=== PATIENT | female | born 1980 | race Caucasian/White ===

== ENCOUNTER 2021-08-29 04:16 | Inpatient (IN) | payer OTHER ==
[~2021-08-29] VITALS: Ht 167.6 cm; Wt 67.6 kg
[2021-08-29 04:57] LABS: BASOPHILS # (AUTO) 0.1 K/uL (0.0-0.2); BASOPHILS % (AUTO) 0.8 % (0.0-2.0); HEMATOCRIT 34 % (33-45); HEMOGLOBIN 11.3 g/dL (11.5-14.8); LYMPHOCYTES % (AUTO) 13.5 % (20.0-44.0); MEAN CORPUSCULAR HGB CONC 34 g/dl (31.0-36.0); MEAN CORPUSCULAR VOLUME 100 fL (82-100); MONOCYTES # (AUTO) 0.4 K/uL (0.1-1.30); MONOCYTES % (AUTO) 4.8 % (2.0-12.0); NEUTROPHILS # (AUTO) 6.1 K/uL (1.8-8.9); NEUTROPHILS % (AUTO) 80.9 % (43.0-81.0); PLATELET COUNT (AUTO) 265 K/uL (150-450); RED BLOOD CELL COUNT(AUTO) 3.35 MIL/uL (4.0-5.2); WHITE BLOOD COUNT (AUTO) 7.6 K/uL (4.3-11.0)
[2021-08-29 05:00] LABS: CREATININE 1.3 mg/dL (0.6-1.3); POTASSIUM 3.6 mmol/L (3.5-5.1)
[2021-08-29 05:05] LABS: ALBUMIN 4.8 g/dL (3.4-5.0); BILIRUBIN,DIRECT 0.3 mg/dL (0.0-0.2); TOTAL PROTEIN, SERUM 10.4 g/dL (6.4-8.2)
[2021-08-29 05:40] LABS: BILIRUBIN,URINE SMALL (NEGATIVE); COLOR,URINE DARK YELLOW (YELLOW); LEUKOCYTE ESTERASE ,URINE Negative (NEGATIVE); NITRITE, URINE Negative (NEGATIVE); PH,URINE 6.5 (5.0-8.0); PROTEIN,URINE >=300 mg/dl (NEGATIVE); UGLUCOSE Negative (NEGATIVE)
[2021-08-29 05:58] LABS: RBC,URINE 0-2 /HPF (0-2); WBC,URINE 0-2 /HPF (0-3)
[2021-08-29 05:59] LABS: BACTERIA,URINE Few /HPF (None Seen); HYALINE CASTS, URINE Few /LPF (None Seen); MUCUS,URINE Few /LPF (None Seen); SQUAMOUS EPITHELIAL CELL,UR Many /HPF (None Seen)
[2021-08-29] MEDS ORDERED: ONDANSETRON HCL/PF 4 MG/2 ML VIAL ONE ×2 (06:17→10:25)
[2021-08-29] MEDS ORDERED: LORAZEPAM INJ 2 MG/ML VIAL ONE ×2 (06:17→10:12)
[2021-08-29] MEDS ORDERED: IV D5/ 0.9% NACL 1,000 ML IV ONE ×2 (06:30→10:30)
[2021-08-29] MEDS ORDERED: LORAZEPAM INJ 2 MG/ML VIAL IV ONE ×2 (06:30→10:30)
[2021-08-29] MEDS ORDERED: ONDANSETRON HCL/PF - ER 4 MG/2 ML VIAL IV ONE (06:30)
--- NOTE | 2021-08-29 07:30 | NUR ---
Received patient in bed asleep, in no distress. connected to the monitor and pulse ox. Kept comfortable, will continue to monitor accordingly.
[2021-08-29] MEDS ORDERED: Thiamine 100 MG in IV D5W 50 ML IV SCH (08:00)
[2021-08-29] MEDS ORDERED: THIA100T70 PO (08:04)
[2021-08-29] MEDS ORDERED: LITH150C PO (08:04)
[2021-08-29] MEDS ORDERED: LEVE500T20 PO (08:04)
[2021-08-29] MEDS ORDERED: PANT40TA49 PO (08:04)
[2021-08-29] MEDS ORDERED: FOLI0.4T6 PO (08:05)
[2021-08-29] MEDS ORDERED: ENOXAPARIN SODIUM 60 MG/0.6 ML DISP.SYRIN SQ ONE (10:00)
--- NOTE | 2021-08-29 10:53 | NUR ---
GOT BED 104
[2021-08-29] MEDS ORDERED: ONDANSETRON HCL/PF 4 MG/2 ML VIAL IV ONE (11:00)
--- NOTE | 2021-08-29 11:25 | NUR ---
report given to Dima RANDOLPH for mita.
--- NOTE | 2021-08-29 11:41 | NUR ---
MARIOA CALLED LUMBER HACKER PAGED.
--- NOTE | 2021-08-29 12:44 | NUR ---
RN NOTE Pt received from ER via kailyn, Alert and oriented x 4, complains of pain on back 8/10. With nausea and emesis present, emesis moderate amount x 1 episode. She is ambulatory. RAC IV 20G with no s/sx of infiltration. Safety precautions implemented, bed locked in lowest position, call light within reach.
--- NOTE | 2021-08-29 13:05 | NUR ---
wheeled patient via gurney accompanied by RN and emt in no distress. RN assigned to patient at bedside to assume care.
[2021-08-29 14:00] VITALS: BP 151/98
[2021-08-29] MEDS ORDERED: ONDANSETRON HCL/PF 4 MG/2 ML VIAL IV PRN (14:00)
[2021-08-29] MEDS ORDERED: Z GUARD REMEDY 2 OZ OINT TP PRN (14:30)
[2021-08-29] MEDS ORDERED: MAG HYDROX/AL HYDROX/SIMETH 30 ML UDC PO PRN (14:30)
[2021-08-29] MEDS ORDERED: ZOLPIDEM TARTRATE 5 MG TABLET PO PRN (14:30)
[2021-08-29] MEDS ORDERED: ACETAMINOPHEN 325 MG TABLET PO PRN (14:30)
[2021-08-29] MEDS ORDERED: MAGNESIUM HYDROXIDE 30 ML UDC PO PRN (14:30)
--- NOTE | 2021-08-29 15:14 | NUR ---
RN NOTE Patient denies taking lithium, states she used to take librium 25mg QD but only for a few days but stopped since she started drinking again. notified.
[2021-08-29] MEDS: IV D5/0.45 NACL 1,000 ML IV PRN (16:12)
[2021-08-29] MEDS: HYDROCODONE/APAP 5/325MG TABLET PO PRN (16:24)
[2021-08-29] MEDS: LORAZEPAM INJ 2 MG/ML VIAL IV PRN ×2 (16:25→21:17)
[2021-08-29 18:00] VITALS: BP 125/87
--- NOTE | 2021-08-29 18:35 | NUR ---
CUT ROLL MACHINE OPERATOR CLOSING NOTES Pt is A/O X 4, awake, on room air, no respiratory distress, no SOB. Epsiodes of emesis throughout the shift x 3 moderate amount clear contents. No abdominal distention. Complains of pain on back area 8/10 relieved after administration of norco 2/10. Complains of anxiety requesting for ativan with relief. On IVF D5 1/2 NS on RAC with no s/sx of infiltration. Remains NPO. Patient is ambulatory. Safety precautions implemented, bed locked in lowest position, call light within reach.
--- NOTE | 2021-08-29 19:30 | NUR ---
PUMPING SUPERVISOR OPENING NOTES RECEIVED PATIENT IN BED, A/OX4. NO S/S OF APPARENT RESPIRATORY DISTRESS. C/O PAIN AND N/V -- WILL BE TAKEN CARE OF. TELE MONITOR BOX READING SR 60'S. IV D5 1/2 NS RUNNING @75CC/HR. SAFETY IN PLACE. PATIENT ABLE TO MAKE NEEDS KNOWN. WILL CONT. TO MONITOR.
[2021-08-29] MEDS: ONDANSETRON HCL/PF 4 MG/2 ML VIAL IVP PRN (19:37)
--- NOTE | 2021-08-29 19:37 | NUR ---
LAY BROTHER NOTES ZOFRAN 4MG GIVEN AT THIS TIME.
--- NOTE | 2021-08-29 19:48 | NUR ---
EARLY CHILDHOOD ASSOCIATE TEACHER NOTES PATIENT C/O 8/10 GENERALIZED PAIN. ONLY HAS NORCO 5/325 PO. PATIENT IS NPO AND C/O N/V AND NOT TOLERATING PO INTAKE. CALLED DOCTOR ANETA GORDON IF HE WANTS TO ORDER PAIN MEDICATION IV. DOCTOR ORDERED MORPHINE 2MG IV Q6H. WILL FOLLOW THROUGH ORDER.
[2021-08-29] MEDS: MORPHINE SULFATE INJ 2 MG/ML DISP.SYRIN IV PRN (20:11)
--- NOTE | 2021-08-29 20:11 | NUR ---
INTERDISCIPLINARY PROFESSOR NOTES MORPHINE 2MG GIVEN AT THIS TIME. WILL REASSESS.
[2021-08-29] MEDS: LEVETIRACETAM (250 MG) 250 MG TABLET PO SCH (21:00)
--- NOTE | 2021-08-29 21:17 | NUR ---
SPA DIRECTOR/FINANCE NOTES PATIENT REQUESTED ATIVAN. GIVEN 0.5 ML OF 1MG AT THIS TIME.
[2021-08-29 22:00] VITALS: BP 135/96
[2021-08-30] VITALS (7 sets, daily range): BP systolic 101–138; BP diastolic 80–95
[2021-08-30] MEDS: ONDANSETRON HCL/PF 4 MG/2 ML VIAL IVP PRN ×2 (02:41→17:34)
[2021-08-30] MEDS: MORPHINE SULFATE INJ 2 MG/ML DISP.SYRIN IV PRN ×2 (02:42→20:37)
[2021-08-30] MEDS: IV D5/0.45 NACL 1,000 ML IV PRN (04:01)
--- NOTE | 2021-08-30 06:03 | NUR ---
CREATIVE DEVELOPER NOTES PATIENT ADAMANTLY REFUSES TO CHANGE HER BEDDINGS. PATIENT A/OX4, AMBULATES TO THE RESTROOM. PER PATIENT "I JUST WANT TO SLEEP".
--- NOTE | 2021-08-30 07:00 | NUR ---
TRACK MAN CLOSING NOTES PATIENT IN BED WITH EYES CLOSED, EASY TO AROUSE. A/OX4. AMBULATORY. NO S/S OF APPARENT DISTRESS TOLERATING ROOM AIR. C/O PAIN IN A TOLERABLE LEVEL AT THIS JANINA MANAGED WITH MEDICATIONS. TELE MONITOR BOX READING SINUS RONEL AT THE MOMENT 59. IV D5 1/2 NS RUNNING @75CC/HR. N/V SUBSIDED. ALL NEEDS ATTENDED. SAFETY KEPT IN PLACE THE WHOLE SHIFT. PATIENT DID NOT EXHIBIT ANY DELIRIUM TREMORS THROUGHOUT THE SHIFT. WILL ENDORSE CARE TO MORNING SHIFT RN.
[2021-08-30 07:13] LABS: BASOPHILS % (AUTO) 0.5 % (0.0-2.0); EOSINOPHILS % (AUTO) 1.4 % (0.0-6.0); HEMATOCRIT 34 % (33-45); HEMOGLOBIN 11.2 g/dL (11.5-14.8); LYMPHOCYTES # (AUTO) 1.3 K/uL (0.8-4.8); LYMPHOCYTES % (AUTO) 23.7 % (20.0-44.0); MEAN CORPUSCULAR HGB CONC 33 g/dl (31.0-36.0); MEAN CORPUSCULAR VOLUME 103 fL (82-100); MONOCYTES # (AUTO) 0.3 K/uL (0.1-1.30); MONOCYTES % (AUTO) 4.8 % (2.0-12.0); NEUTROPHILS # (AUTO) 3.8 K/uL (1.8-8.9); NEUTROPHILS % (AUTO) 69.6 % (43.0-81.0); PLATELET COUNT (AUTO) 173 K/uL (150-450); RED BLOOD CELL COUNT(AUTO) 3.31 MIL/uL (4.0-5.2); WHITE BLOOD COUNT (AUTO) 5.5 K/uL (4.3-11.0)
[2021-08-30] MEDS ORDERED: PANTOPRAZOLE 40 MG TABLET.DR PO SCH (07:30)
[2021-08-30 08:00] LABS: CALCIUM, SERUM 8.2 mg/dL (8.5-10.1); MAGNESIUM 1.4 mg/dL (1.8-2.4)
[2021-08-30] MEDS: FOLIC ACID 1 MG TABLET PO SCH (08:18)
[2021-08-30] MEDS: LEVETIRACETAM (250 MG) 250 MG TABLET PO SCH ×2 (08:18→20:37)
[2021-08-30] MEDS: THIAMINE HCL 100 MG TABLET PO SCH (08:19)
[2021-08-30] MEDS: PANTOPRAZOLE 40 MG TABLET.DR PO SCH (08:19)
[2021-08-30 09:37] LABS: THYROID STIMULATING HORMONE 5.114 uIU/mL (0.358-3.74)
[2021-08-30] MEDS: POTASSIUM CL. PREMIX PERIPHER. 50 ML IV SCH ×2 (11:07→12:10)
--- NOTE | 2021-08-30 11:30 | NUR ---
RN NOTES, ATIVAN PRN GIVEN PER PATIENT REQUEST, FORGOT TO SCAN MEDICATION, CHARGE NURSE EVA AWARE.
[2021-08-30] MEDS ORDERED: Magnesium 1GM/D5W 100ML PREMIX 100 ML IV SCH (12:30)
--- NOTE | 2021-08-30 13:26 | NUR ---
RN NOTES, PATIENT REFUSED MG, KCL IV AND FLUIDS, DR WEBSTER AWARE, KCL AND MG WILL BE ADMINISTERED VIA PO.
--- NOTE | 2021-08-30 13:26 | NUR ---
patient refused iv kcl and magnesium requested po. made aware.
[2021-08-30] MEDS ORDERED: MAGNESIUM OXIDE 400 MG TABLET PO ONE (13:30)
[2021-08-30] MEDS ORDERED: POTASSIUM CHLORIDE 20 MEQ TAB.PRT.SR PO ONE (14:00)
[2021-08-30] MEDS: LORAZEPAM INJ 2 MG/ML VIAL IV PRN (17:34)
--- NOTE | 2021-08-30 18:57 | NUR ---
COMPLIANCE REPRESENTATIVE DEALER CLOSING NOTES, PATIENT IN BED A/OX4. AMBULATORY, NO S/S OF SOB/ACUTE DISTRESS, TOLERATING ROOM AIR. NSR IN TELE MONITOR NO EMESIS NOTED, BUT EPISODE OF NAUSEA, ON REGULAR DIET NOW, MINIMAL INTAKE, ALL NEEDS ATTENDED, WILL ENDORSE CONTINUITY OF CARE TO ONCOMING NURSE.
--- NOTE | 2021-08-30 20:00 | NUR ---
RN NOTE RECEIVED PT IN BED, AWAKE, ALERT AND ORIENTED X 4. NOT IN ANY DISTRESS, DENIES ANY SOB. DENIES NAUSEA AND VOMITING. PT COMPLAINS OF ABDOMINAL SHARP PAIN. IV ON RWRIST PATENT AND INTACT. ALL SAFETY MEASURES IN PLACE, WILL CONTINUE TO MONITOR.
[2021-08-31] VITALS: BP 115/84
[2021-08-31] MEDS: LORAZEPAM INJ 2 MG/ML VIAL IV PRN ×2 (00:25→09:01)
--- NOTE | 2021-08-31 00:34 | NUR ---
RN NOTE PT UNABLE TO SLEEP, GETTING ANXIOUS. REQUESTED FOR ATIVAN, GIVEN ORDERED.
[2021-08-31 04:00] VITALS: BP 110/79
--- NOTE | 2021-08-31 06:43 | NUR ---
RN NOTE PATIENT SLEEPING, AROUSES EASILY. NO SIGNS OF DISTRESS NOTED. NO S/SX OF ALCOHOL WITHDRAWAL ALL SHIFT. DENIES N&V, DENIES ANY PAIN AT THIS TIME. PATIENT IV ON R WRIST REMOVED DUE TO PT COMPLAINED OF DISCOMFORT, NEW IV LINE WERE INSERTED ON RFA 22G, GOOD BLOOD RETURN, FLUSHES WELL. PT CONTINENT, AMBULATES TO RESTROOM. NEEDS WERE ATTENDED. ALL SAFETY MEASURE MAINTAINED, WILL ENDORSE TO NEXT SHIFT NURSE FOR MEAGHAN.
[2021-08-31] MEDS: PANTOPRAZOLE 40 MG TABLET.DR PO SCH (06:58)
[2021-08-31] MEDS: ONDANSETRON HCL/PF 4 MG/2 ML VIAL IVP PRN (06:58)
[2021-08-31] MEDS: MORPHINE SULFATE INJ 2 MG/ML DISP.SYRIN IV PRN (06:58)
[2021-08-31 07:09] LABS: BASOPHILS % (AUTO) 0.5 % (0.0-2.0); EOSINOPHILS % (AUTO) 5.3 % (0.0-6.0); HEMATOCRIT 31 % (33-45); HEMOGLOBIN 10.3 g/dL (11.5-14.8); LYMPHOCYTES # (AUTO) 1.4 K/uL (0.8-4.8); LYMPHOCYTES % (AUTO) 27.8 % (20.0-44.0); MEAN CORPUSCULAR HGB CONC 34 g/dl (31.0-36.0); MEAN CORPUSCULAR VOLUME 101 fL (82-100); MONOCYTES # (AUTO) 0.2 K/uL (0.1-1.30); MONOCYTES % (AUTO) 4.4 % (2.0-12.0); NEUTROPHILS # (AUTO) 3.1 K/uL (1.8-8.9); PLATELET COUNT (AUTO) 146 K/uL (150-450); RED BLOOD CELL COUNT(AUTO) 3.03 MIL/uL (4.0-5.2); WHITE BLOOD COUNT (AUTO) 5.1 K/uL (4.3-11.0)
--- NOTE | 2021-08-31 07:15 | NUR ---
RN OPENING NOTES RECEIVED PT IN BED, A/O X4. STABLE ON ROOM AIR. NO SOB OR ANY DISTRESS NOTED. SR ON TELE MONITOR. RFA #22 INTACT, PATENT AND FLUSHED. AMBULATORY, BRP. NO PAIN REPORTED. SAFETY MEASURES IN PLACE. CALL LIGHT WITHIN REACH. BED LOCKED AND IN LOWEST POSITION WITH SIDE RAILS UP X2. WILL CONTINUE TO MONITOR.
[2021-08-31 07:49] LABS: ALBUMIN 3.7 g/dL (3.4-5.0); BILIRUBIN,TOTAL 1.4 mg/dL (0.2-1.0); PHOSPHORUS 2.9 mg/dL (2.5-4.9); POTASSIUM 3.1 mmol/L (3.5-5.1); TOTAL PROTEIN, SERUM 8.2 g/dL (6.4-8.2)
[2021-08-31 08:00] VITALS: BP 113/78
[2021-08-31 08:13] LABS: MAGNESIUM 1.2 mg/dL (1.8-2.4)
[2021-08-31] MEDS: THIAMINE HCL 100 MG TABLET PO SCH (08:58)
[2021-08-31] MEDS: FOLIC ACID 1 MG TABLET PO SCH (08:58)
[2021-08-31] MEDS: LEVETIRACETAM (250 MG) 250 MG TABLET PO SCH (09:01)
[2021-08-31] MEDS: Magnesium 1GM/D5W 100ML PREMIX 100 ML IV SCH ×2 (11:29→13:03)
[2021-08-31] MEDS: POTASSIUM CHLORIDE 20 MEQ TAB.PRT.SR PO SCH ×2 (11:29→13:03)
[2021-08-31] MEDS: HYDROCODONE/APAP 5/325MG TABLET PO PRN ×2 (11:52→16:06)
[2021-08-31 12:00] VITALS: BP 119/83
--- NOTE | 2021-08-31 12:45 | NUR ---
SS Consult: SS Consult requested for ETOH abuse. The pt. is a 41 year old female who in [place] with C/O of abdominal pain, vomiting. The pt. appears unkempt and makes good eye contact. The pt.s speech & thought process are WNL. Pt.s mood is depressed with flat affect. Pt. states she was in residential [place] facility for alcoholism but her uncle became ill and she came home to assist him and relapsed. Pt. stated her uncle now has a nurse care provided. Pt. admits that ETOH is a problem for her. Pt. states she drinks alcohol daily and refused to disclose any biopsychosocial triggers or stressors. Pt. presents guarded and did not want to provide detailed information. Pt. denies being homeless and states she resides at[ [address] [place] [address]] with her uncle. Pt. states she receives food stamps and is ambulatory. CHRISTIANO provided pt. with addiction resources and pt. refused them. CHRISTIANO offered pt. referral to rehab and pt. refused stating that she already started the process for outpatient services at [facility] [[address] [facility] [address] ]. D/C plan: Pt. will be discharged back home [ [address] [place] [address]] and nursing to get voucher from nursing yard general car supervisor for pt. transport. CHRISTIANO notified pt.s nurse, Sandy who was agreeable.
--- NOTE | 2021-08-31 17:00 | NUR ---
RN NOTES DISCHARGED PT HOME ACCOMPANIED BY [facility]. IV ACCESS REMOVED ASEPTICALLY. BELONGINGS COMPLETE, LIST SIGNED. SKIN IS INTACT. VACCINATIONS UP TO DATE. DISCHARGE INSTRUCTION GIVEN TO PT, VERBALIZED UNDERSTANDING. NO PAIN REPORTED. VS STABLE.
== END 2021-08-31 16:44 | disposition home or self-care (01) | DRG 775 ==
LOC: ER 04:18 → TELE1 12:11
DX: F10.239 Alcohol dependence with withdrawal, unspecified (principal); E87.2 Acidosis; K76.0 Fatty (change of) liver, not elsewhere classified; N80.9 Endometriosis, unspecified; Z20.822 Contact with and (suspected) exposure to COVID-19; Y90.6 Blood alcohol level of 120-199 mg/100 ml; Z87.59 Personal history of other complications of pregnancy, childbirth and the puerperium; Z88.0 Allergy status to penicillin; Z79.899 Other long term (current) drug therapy; D53.9 Nutritional anemia, unspecified; E87.6 Hypokalemia; E83.42 Hypomagnesemia; R74.01 Elevation of levels of liver transaminase levels
CPT/HCPCS: 36415; 76700-TC; 80048-TC; 80053-TC; 80061-TC; 80076-TC; 81001; 83690-TC; 83735-TC; 84100-TC; 84443-TC; 84703-TC; 85025-TC; 87081-TC; C9803; G0378; G0480; J2060; J2270; J2405; J3411; J3475; J3480; J3490; J7042; J7060

== ENCOUNTER 2022-04-15 02:32 | Inpatient (IN) | payer OTHER ==
[~2022-04-15] VITALS: Ht 165.1 cm; Wt 68.0 kg
[~2022-04-15 02:32] MED LIST: FOLI0.4T6 PO; LEVE500T20 PO; PANT40TA49 PO; THIA100T70 PO
--- NOTE | 2022-04-15 02:40 | NUR ---
[id number] C/O DRINKING HEAVILY AND FELL 2 DAYS AGO WITH RIGHT EYE SWELLING & ECHYMOSIS. VOMITING BLOOD PER PT. PT LAST DRINK OF ALCOHOL WAS ON SATURDAY. PT A/OX4. TOLERATING R/A WELL WITH NO SOB. CONNECTED PT TO POX AND MONITOR. SAFETY & SEIZURE PRECAUTIONS IN PLACE.
[2022-04-15] MEDS ORDERED: LORAZEPAM INJ 2 MG/ML VIAL ONE ×3 (02:45→08:05)
--- NOTE | 2022-04-15 02:56 | NUR ---
PT TAKEN TO CT VIA JOSTIN
--- NOTE | 2022-04-15 02:57 | NUR ---
VIKI #20G S/L; BLOOD COLLECTED AND SENT TO LAB Addendum: 04/15/22 at 0334 by BARRY RFA #20G S/L; BLOOD COLLECTED AND SENT TO LAB
[2022-04-15] MEDS ORDERED: PANTOPRAZOLE 40 MG VIAL ONE (02:58)
[2022-04-15] MEDS ORDERED: OCTREOTIDE 50 MCG/ML AMPUL IV ONE (03:00)
[2022-04-15] MEDS ORDERED: OCTREOTIDE 1,250 MCG in IV NS 0.9% 250 ML IV ONE (03:00)
[2022-04-15] MEDS ORDERED: OCTREOTIDE 100 MCG/ML VIAL ONE (03:00)
[2022-04-15] MEDS ORDERED: LORAZEPAM INJ 2 MG/ML VIAL IV ONE ×2 (03:00→05:00)
[2022-04-15] MEDS ORDERED: OCTREOTIDE 500 MCG/ML VIAL ONE (03:00)
[2022-04-15] MEDS ORDERED: PANTOPRAZOLE 80 MG in IV NS 0.9% 500 ML IV ONE (03:00)
[2022-04-15] MEDS ORDERED: PANTOPRAZOLE 80 MG in IV NS 0.9% 100 ML IV ONE (03:00)
[2022-04-15 03:14] LABS: BASOPHILS % (AUTO) 0.3 % (0.0-2.0); EOSINOPHILS % (AUTO) 0.3 % (0.0-6.0); HEMATOCRIT 30 % (33-45); HEMOGLOBIN 10.4 g/dL (11.5-14.8); LYMPHOCYTES # (AUTO) 2.6 K/uL (0.8-4.8); LYMPHOCYTES % (AUTO) 15.8 % (20.0-44.0); MEAN CORPUSCULAR HGB CONC 35 g/dl (31.0-36.0); MEAN CORPUSCULAR VOLUME 103 fL (82-100); MONOCYTES # (AUTO) 0.9 K/uL (0.1-1.30); MONOCYTES % (AUTO) 5.8 % (2.0-12.0); NEUTROPHILS # (AUTO) 12.6 K/uL (1.8-8.9); NEUTROPHILS % (AUTO) 77.8 % (43.0-81.0); PLATELET COUNT (AUTO) 167 K/uL (150-450); RED BLOOD CELL COUNT(AUTO) 2.89 MIL/uL (4.0-5.2); WHITE BLOOD COUNT (AUTO) 16.2 K/uL (4.3-11.0)
[2022-04-15] MEDS ORDERED: ONDANSETRON HCL/PF 4 MG/2 ML VIAL ONE (03:23)
--- NOTE | 2022-04-15 03:25 | NUR ---
COVID SWAB DONE AND SENT TO LAB
--- NOTE | 2022-04-15 03:25 | NUR ---
LFA #20G S/L; PATENT AND INTACT.
[2022-04-15 03:30] LABS: ALBUMIN 3.7 g/dL (3.4-5.0); BILIRUBIN,DIRECT 0.7 mg/dL (0.0-0.2); BILIRUBIN,TOTAL 2.4 mg/dL (0.2-1.0); CALCIUM, SERUM 8.7 mg/dL (8.5-10.1); CREATININE 1.9 mg/dL (0.6-1.3); TOTAL PROTEIN, SERUM 8.9 g/dL (6.4-8.2)
[2022-04-15] MEDS ORDERED: ONDANSETRON HCL/PF 4 MG/2 ML VIAL IV ONE (03:30)
[2022-04-15] MEDS ORDERED: IV NS 0.9% 1,000 ML IV PRN ×3 (03:30→06:30)
[2022-04-15 03:36] LABS: POTASSIUM 2.9 mmol/L (3.5-5.1)
--- NOTE | 2022-04-15 03:39 | NUR ---
Note hilton in EDM - 04/15/22 at 0343 by BARRY [id number] C/O DRINKING HEAVILY AND FELL 2 DAYS AGO WITH RIGHT EYE SWELLING & ECHYMOSIS. VOMITING BLOOD PER PT. PT LAST DRINK OF ALCOHOL WAS ON SATURDAY. PT A/OX4. TOLERATING R/A WELL WITH NO SOB. CONNECTED PT TO POX AND MONITOR. SAFETY & SEIZURE PRECAUTIONS IN PLACE.
[2022-04-15] MEDS ORDERED: POTASSIUM CHLORIDE 20 MEQ TAB.PRT.SR PO ONE ×3 (04:00→13:30)
--- NOTE | 2022-04-15 05:02 | NUR ---
DR. HANLEY ON PHONE CALL WITH SARA CNC LASER OPERATOR HOSPITALIST REGARDING ADMISSION
--- NOTE | 2022-04-15 05:15 | NUR ---
PLANT MAINTENANCE TECHNICIAN AT PT'S BEDSIDE
[2022-04-15] MEDS ORDERED: ACETAMINOPHEN 325 MG TABLET PO PRN (06:30)
[2022-04-15] MEDS ORDERED: MAGNESIUM HYDROXIDE 30 ML UDC PO PRN (06:30)
[2022-04-15] MEDS ORDERED: LORAZEPAM INJ 2 MG/ML VIAL IV PRN ×2 (06:30→22:30)
[2022-04-15] MEDS ORDERED: ONDANSETRON HCL/PF 4 MG/2 ML VIAL IVP PRN (06:30)
[2022-04-15] MEDS ORDERED: MAG HYDROX/AL HYDROX/SIMETH 30 ML UDC PO PRN (06:30)
--- NOTE | 2022-04-15 06:32 | NUR ---
PROFESSOR OF COMMUNICATION AT PT'S BEDSIDE
--- NOTE | 2022-04-15 06:40 | NUR ---
urine collected and sent to lab
[2022-04-15] MEDS ORDERED: PANTOPRAZOLE 40 MG TABLET.DR PO ONE (07:07)
[2022-04-15 07:11] LABS: BASOPHILS % (AUTO) 0.3 % (0.0-2.0); EOSINOPHILS % (AUTO) 0.2 % (0.0-6.0); HEMATOCRIT 25 % (33-45); HEMOGLOBIN 8.8 g/dL (11.5-14.8); LYMPHOCYTES % (AUTO) 12.9 % (20.0-44.0); MEAN CORPUSCULAR HGB CONC 35 g/dl (31.0-36.0); MEAN CORPUSCULAR VOLUME 105 fL (82-100); MONOCYTES # (AUTO) 0.6 K/uL (0.1-1.30); MONOCYTES % (AUTO) 7.6 % (2.0-12.0); NEUTROPHILS # (AUTO) 6.3 K/uL (1.8-8.9); PLATELET COUNT (AUTO) 95 K/uL (150-450)
[2022-04-15] MEDS ORDERED: PANTOPRAZOLE 40 MG TABLET.DR PO SCH (07:30)
[2022-04-15 07:43] LABS: CALCIUM, SERUM 7.2 mg/dL (8.5-10.1); CREATININE 1.4 mg/dL (0.6-1.3); PHOSPHORUS 2.7 mg/dL (2.5-4.9)
[2022-04-15 07:49] LABS: BILIRUBIN,URINE SMALL (NEGATIVE); COLOR,URINE DARK YELLOW (YELLOW); LEUKOCYTE ESTERASE ,URINE TRACE (NEGATIVE); NITRITE, URINE NEGATIVE (NEGATIVE); PROTEIN,URINE NEGATIVE (NEGATIVE); UGLUCOSE NEGATIVE (NEGATIVE)
[2022-04-15 08:00] VITALS: BP 101/56
[2022-04-15] MEDS ORDERED: CEFTRIAXONE 1GM BAG (ER ONLY) 50 ML IV ONE (08:03)
[2022-04-15 08:16] LABS: POTASSIUM 2.7 mmol/L (3.5-5.1)
[2022-04-15 08:17] LABS: MAGNESIUM 0.8 mg/dL (1.8-2.4)
[2022-04-15] MEDS: CEFTRIAXONE 1 G in IV D5W 50 ML IV SCH (08:22)
--- NOTE | 2022-04-15 08:26 | NUR ---
[facility] BED 118-1
--- NOTE | 2022-04-15 08:45 | NUR ---
REPORT GIVEN TO LINDA RANDOLPH FOR MEAGHAN
[2022-04-15 08:57] LABS: BILIRUBIN,DIRECT 0.9 mg/dL (0.0-0.2); BILIRUBIN,TOTAL 1.9 mg/dL (0.2-1.0); TOTAL PROTEIN, SERUM 7.2 g/dL (6.4-8.2)
[2022-04-15] MEDS ORDERED: GABA-532 PO (09:17)
--- NOTE | 2022-04-15 09:30 | NUR ---
telegraph office manager note received patient from er ,resting comfortably ,sleeping on and off, on tele monitor sr, with ivf st will start ,from er on Protonix and Sandostatin drip ,spoke with pharmacy stated that finish all drips on seizures precaution in place, admitted under care christian dunn with dx seizure jose, call light within reach , bed in lowest and locked position, will monitor
[2022-04-15 10:04] LABS: BACTERIA,URINE Rare /HPF (None Seen); RBC,URINE 0-2 /HPF (0-2); SQUAMOUS EPITHELIAL CELL,UR Few /HPF (None Seen)
[2022-04-15] MEDS: LEVETIRACETAM (250 MG) 250 MG TABLET PO SCH ×2 (10:26→21:51)
[2022-04-15] MEDS: FOLIC ACID 1 MG TABLET PO SCH (10:26)
[2022-04-15] MEDS: THIAMINE HCL 100 MG TABLET PO SCH (10:26)
--- NOTE | 2022-04-15 11:10 | NUR ---
telegraphic typewriter installer note started on ivf ,assisted to br, all needs attended
[2022-04-15 12:00] VITALS: BP 112/72
--- NOTE | 2022-04-15 12:15 | NUR ---
director telemetry note per dr alfreda fernández to stop sindastin and Protonix drip , also inform mg0.8 ordered cmp stat will f\u
[2022-04-15] MEDS: IV NS 0.9% 1,000 ML IV SCH ×2 (12:40→22:49)
[2022-04-15 12:41] LABS: HEMOGLOBIN 8.1 g/dL (11.5-14.8)
[2022-04-15] MEDS: CHLORDIAZEPOXIDE HCL 25 MG CAPSULE PO SCH ×3 (12:45→22:48)
[2022-04-15] MEDS: LORAZEPAM INJ 2 MG/ML VIAL IV PRN ×2 (12:50→19:38)
--- NOTE | 2022-04-15 12:56 | NUR ---
EMERGENCY MANAGEMENT COORDINATOR NOTE FEELS ANXIOUS ATIVAN 2 MG IVP GIVEN BO112/78 ,SATURATION 96% WILL MONITOR
[2022-04-15 12:58] LABS: CARBON DIOXIDE 31 mmol/L (21-32); CHLORIDE 88 mmol/L (98-107); CREATININE 1.4 mg/dL (0.6-1.3); GLUCOSE 121 mg/dL (74-106); POTASSIUM 3.1 mmol/L (3.5-5.1); SODIUM SERUM 127 mmol/L (136-145); UREA NITROGEN, BLOOD 34 mg/dL (7-18)
[2022-04-15 13:02] LABS: ALANINE AMINOTRANSFERASE 51 U/L (12-78); ALKALINE PHOSPHATASE 44 U/L (46-116); ASPARTATE AMINOTRANSFERASE 101 U/L (15-37); BILIRUBIN,TOTAL 1.6 mg/dL (0.2-1.0); CREATINE KINASE, TOTAL 67 U/L (26-192); TOTAL PROTEIN, SERUM 7.3 g/dL (6.4-8.2)
[2022-04-15 13:13] LABS: ALCOHOL, BLOOD < 3 mg/dL (0-0); MAGNESIUM 0.9 mg/dL (1.8-2.4)
--- NOTE | 2022-04-15 13:32 | NUR ---
TEL;E RN NOTE REPORTED TO DR TILA Miner 3.1 MAG 0.9 NEW ORDER WITH 2MG OF MAG IV AND 40 MEQ KCL PO TO GIVE , ORDER CARRIED OUT
[2022-04-15] MEDS: Magnesium 1GM/D5W 100ML PREMIX 100 ML IV SCH ×2 (13:37→14:38)
[2022-04-15 16:00] VITALS: BP 92/61
[2022-04-15] MEDS: PANTOPRAZOLE 40 MG VIAL IV SCH (16:38)
--- NOTE | 2022-04-15 17:00 | NUR ---
HISTOTECHNOLOGIST NOTE MAG AND PO KCL GIVEN ORDERED CONT ON IVF ORDERED ,WILL CONT TO MONITOR, ON SEIZURE PRECAUTION
--- NOTE | 2022-04-15 18:20 | NUR ---
LOG BUYER NOTE ROUNDS MADE , ALL NEEDS ATTENDED, ASSISTED TO BR, ABLE TO URINATE WELL . KEEP CLEAN DRY , BED IN LOWEST AND LOCKED POSITION , WILL CONT TO MONITOR
--- NOTE | 2022-04-15 19:25 | NUR ---
RN NOTE PT RECEIVED IN BED. PT IS ON ROOM AIR SHOWING NO S/SX OF RESP DISTRESS/SOB. BREATHING EVEN AND UNLABORED. PT IS A/OX4. AMBULATORY. ON REG DIET. IV ACCESS NOTED ON RIGHT FA #22 AND LEFT HAND, LINE FLUSHED, PATENT, AND INTACT RUNNING NS AT 100 CC/HR. ALL SAFETY MEASURES IMPLEMENTED. CALL LIGHT WITHIN REACH. HOB ELEVATED. BED LOCKED AND IN LOWEST POSITION. WILL CONTINUE TO MONITOR AND ASSESS FOR ANY CHANGES DURING SHIFT.
[2022-04-15 20:00] VITALS: BP 107/78
[2022-04-15 20:16] LABS: HEMOGLOBIN 7.8 g/dL (11.5-14.8)
[2022-04-15 21:53] LABS: LYMPHOCYTES % (MANUAL) 16 % (16-48); MONOCYTES % (MANUAL) 5 % (0-11.0); NEUTROPHILS % (MANUAL) 79 (42-76)
[2022-04-16] VITALS: BP 117/84
[2022-04-16 04:00] VITALS: BP 127/94
[2022-04-16 04:46] LABS: BASOPHILS % (AUTO) 0.7 % (0.0-2.0); EOSINOPHILS % (AUTO) 1.8 % (0.0-6.0); HEMATOCRIT 25 % (33-45); HEMOGLOBIN 8.4 g/dL (11.5-14.8); LYMPHOCYTES # (AUTO) 1.3 K/uL (0.8-4.8); LYMPHOCYTES % (AUTO) 29.7 % (20.0-44.0); MEAN CORPUSCULAR HGB CONC 34 g/dl (31.0-36.0); MEAN CORPUSCULAR VOLUME 107 fL (82-100); MONOCYTES # (AUTO) 0.3 K/uL (0.1-1.30); MONOCYTES % (AUTO) 7.2 % (2.0-12.0); NEUTROPHILS # (AUTO) 2.7 K/uL (1.8-8.9); NEUTROPHILS % (AUTO) 60.6 % (43.0-81.0); PLATELET COUNT (AUTO) 95 K/uL (150-450); RED BLOOD CELL COUNT(AUTO) 2.31 MIL/uL (4.0-5.2); WHITE BLOOD COUNT (AUTO) 4.5 K/uL (4.3-11.0)
[2022-04-16 05:07] LABS: CALCIUM, SERUM 7.8 mg/dL (8.5-10.1); CREATININE 1.4 mg/dL (0.6-1.3); MAGNESIUM 1.5 mg/dL (1.8-2.4); PHOSPHORUS 1.7 mg/dL (2.5-4.9); POTASSIUM 3.3 mmol/L (3.5-5.1)
--- NOTE | 2022-04-16 05:19 | NUR ---
RN NOTE INFORMED DNP SARA REGARDING MAGNESIUM OF 1.5 AND POTASSIUM OF 3.3. AWAITING FOR FURTHER ORDERS.
--- NOTE | 2022-04-16 06:26 | NUR ---
RN NOTE NO CHANGES IN PT CONDITION DURING SHIFT. PT IS ON ROOM AIR SHOWING NO S/SX OF RESP DISTRESS/SOB. BREATHING EVEN AND UNLABORED. IV ACCESS NOTED ON RIGHT FA #22 AND LEFT HAND RUNNING NS AT 100 CC/HR. ALL SAFETY MEASURES IMPLEMENTED. CALL LIGHT WITHIN REACH. HOB ELEVATED. BED LOCKED AND IN LOWEST POSITION. WILL ENDORSE TO MORNING SHIFT RN FOR MEAGHAN.
[2022-04-16] MEDS: CHLORDIAZEPOXIDE HCL 25 MG CAPSULE PO SCH ×3 (06:43→21:54)
--- NOTE | 2022-04-16 07:01 | NUR ---
RN NOTE PT WAS SLEEPING, WOKE UP TO GIVE SCHEDULED MEDICATION OF LIBRIUM. PT WOKE UP EXTREMELY CONFUSED ASKING "WHERE AM I" AND STATED SHE "FELT LIKE SHE WAS IN A UFO". AFTER RE-ORIENTATION, PATIENT BECAME MORE ALERT AND REALIZED SHE WAS AT THE HOSPITAL AND THE REASON WHY SHE IS HERE. WILL ENDORSE TO MORNING SHIFT RN TO MONITOR FOR NEURO CHANGES AND ALCOHOL WITHDRAWAL.
--- NOTE | 2022-04-16 07:30 | NUR ---
RN OPENING NOTE RECEIVED PATIENT IN BED, AWAKE, ALERT/ORIENTED X 4, ABLE TO MAKE NEEDS KNOWN. ON ROOM AIR BREATHING EVEN AND UNLABORED. NO SIGNS OF ANY ACUTE DISTRESS OR SOB NOTED AT THE TIME. PATIENT IS AMBULATORY. IV ACCESS NOTED ON RIGHT FA #22 AND LEFT HAND, LINE FLUSHED, PATENT, AND INTACT RUNNING NS AT 100 CC/HR. ALL SAFETY MEASURES IMPLEMENTED. CALL LIGHT WITHIN REACH. HOB ELEVATED. BED LOCKED AND IN LOWEST POSITION. WILL CONTINUE TO MONITOR AND ASSESS FOR ANY CHANGES DURING SHIFT.
[2022-04-16 08:00] VITALS: BP 140/90
[2022-04-16] MEDS: CEFTRIAXONE 1 G in IV D5W 50 ML IV SCH (08:41)
[2022-04-16] MEDS: FOLIC ACID 1 MG TABLET PO SCH (08:42)
[2022-04-16] MEDS: PANTOPRAZOLE 40 MG VIAL IV SCH (08:42)
[2022-04-16] MEDS: THIAMINE HCL 100 MG TABLET PO SCH (08:42)
[2022-04-16] MEDS: LEVETIRACETAM (250 MG) 250 MG TABLET PO SCH ×2 (08:42→21:38)
[2022-04-16] MEDS: IV NS 0.9% 1,000 ML IV SCH ×2 (09:01→19:47)
[2022-04-16] MEDS ORDERED: POTASSIUM CHLORIDE 20 MEQ TAB.PRT.SR PO SCH (09:30)
[2022-04-16] MEDS ORDERED: MAGNESIUM OXIDE 400 MG TABLET PO ONE (10:30)
[2022-04-16] MEDS: LORAZEPAM 1 MG TABLET PO PRN ×3 (11:56→23:57)
[2022-04-16 12:00] VITALS: BP 114/87
[2022-04-16 12:56] LABS: HEMOGLOBIN 8.8 g/dL (11.5-14.8)
[2022-04-16] MEDS ORDERED: K PHOS NEUTRAL 250 MG TABLET PO ONE (15:30)
[2022-04-16 16:00] VITALS: BP 109/81
[2022-04-16] MEDS ORDERED: PANTOPRAZOLE 40 MG TABLET.DR PO SCH (16:30)
--- NOTE | 2022-04-16 18:44 | NUR ---
RN CLOSING NOTE NO SIGNIFICANT CHANGES THROUGHOUT SHIFT, PATIENT REMAINS IN STABLE CONDITION. PATIENT IN BED, AWAKE, ALERT/ORIENTED X 4, WITH VISITOR AT BEDSIDE. ON ROOM AIR TOLERATING WELL. BREATHING EVEN AND UNLABORED. NO SIGNS OF ANY ACUTE DISTRESS OR SOB NOTED AT THE TIME. IV ACCESS NOTED ON RIGHT FA #22 AND LEFT HAND, LINE FLUSHED, PATENT, AND INTACT RUNNING NS AT 100 CC/HR. NO SIGNS OF INFILTRATION NOTED ON SITE. ALL DUE MEDS GIVEN ORDERED. ALL NEEDS ANTICIPATED. KEPT PATIENT CLEAN DRY AND COMFORTABLE. ALL SAFETY MEASURES IMPLEMENTED. CALL LIGHT WITHIN REACH. HOB ELEVATED. BED LOCKED AND IN LOWEST POSITION. WILL ENDORSE TO ONCOMING NURSE FOR CONTINUITY OF CARE.
[2022-04-16 20:00] VITALS: BP 117/89
--- NOTE | 2022-04-16 20:00 | NUR ---
CROWN PRESSER NOTE PT IN BED AWAKE. A/O X 3, NO SOB, NO DISTRESS OR DISCOMFORT NOTED. ON TELE SR HR 97. NS @ 100 ML/HR INFUSING WELL @ RFA #20 G, NO S/S OF INFILTRATION NOTED. LT HAND S/L INTACT AND PATENT. ALL NEEDS ATTENDED. SIDE RAILS UP X 2 AND CALL LIGHT WITHIN REACH. VSS. CONTINUE TO MONITOR HER.
[2022-04-17] VITALS: BP 116/75
--- NOTE | 2022-04-17 03:35 | NUR ---
WATER PURIFIER NOTE PT WOKE UP AND WENT TO BATHROOM, ACCIDENTLY PULLED THE IVF LINE OUT. MINOR BLEEDING NOTED. SECURED THE SITE WITH 2X2 GAUZE. PT ALSO INSISTED TO GO AMA. REMINDED PT PRO AND CONS GOING AMA BUT PT DON'T WANT TO LISTEN. PT SIGNED THE AMA FORM. CHARGE NURSE, NURSING COMPOSING MACHINE OPERATOR AND SARA MONTERO INFORMED. REMOVED THE RFA SL AND SECURED WITH 2X2 GUAZE. PT REFUSED TO SIT IN G/C, ESCORTED HER OUT OF THE HOSPITAL BY AMBULATION. NO DISTRESS OR DISCOMFORT NOTED.
== END 2022-04-17 03:40 | disposition left against medical advice (07) | DRG 53 ==
LOC: ER 02:35 → TRANSITION 06:57 → TELE-TD 08:34 → TELE1 10:33
PROVIDERS: ADMIT Internal Medicine; ATTEND Internal Medicine
DX: G40.409 Other generalized epilepsy and epileptic syndromes, not intractable, without status epilepticus (principal); N17.0 Acute kidney failure with tubular necrosis; E87.1 Hypo-osmolality and hyponatremia; D69.6 Thrombocytopenia, unspecified; E88.09 Other disorders of plasma-protein metabolism, not elsewhere classified; D62 Acute posthemorrhagic anemia; E86.0 Dehydration; D69.59 Other secondary thrombocytopenia; D53.9 Nutritional anemia, unspecified; S00.10XA Contusion of unspecified eyelid and periocular area, initial encounter; N39.0 Urinary tract infection, site not specified; Z20.822 Contact with and (suspected) exposure to COVID-19; Z53.29 Procedure and treatment not carried out because of patient's decision for other reasons; Z79.899 Other long term (current) drug therapy; Y90.0 Blood alcohol level of less than 20 mg/100 ml; E87.6 Hypokalemia; F10.139 Alcohol abuse with withdrawal, unspecified; D72.829 Elevated white blood cell count, unspecified; E83.42 Hypomagnesemia; W19.XXXA Unspecified fall, initial encounter; Y92.9 Unspecified place or not applicable; Z91.14 Patient's other noncompliance with medication regimen; E86.1 Hypovolemia
CPT/HCPCS: 36415; 70450-TC; 71045-TC; 80048-TC; 80053-TC; 80061-TC; 80076-TC; 81001; 82550-TC; 83605-TC; 83735-TC; 84100-TC; 85025-TC; 85027-TC; 85730-TC; 86850-TC; 87086-TC; 97116-TC; 97530-TC; C9113; C9803; G0378; G0480; J0696; J2060; J2354; J2405; J3475; J7030; J7050; J7060

== ENCOUNTER 2022-04-17 15:33 | Emergency (ER) | payer OTHER ==
[~2022-04-17] VITALS: Ht 167.6 cm; Wt 59.0 kg
[~2022-04-17 15:33] MED LIST changes: +GABA-532 PO
--- NOTE | 2022-04-17 15:50 | NUR ---
TO ER BED 10. BIB DAD FOR ADMISSION, C/O WEAKNESS AND DIZZINESS, SIGNED AMA YESTERDAY SAYING "THEY POKED ME SO MANY TIMES." PT ATTACHED TO MONITOR. KAREEM Da Silva FA 20G, LAB DRAWN AND COLLECTED AT BEDSIDE. WARM BLANKET PROVIDED FOR COMFORT. AWAITING MD JOSE.
--- NOTE | 2022-04-17 16:02 | NUR ---
COVID TEST COLLECTED AND SENT
[2022-04-17] MEDS ORDERED: MAG HYDROX/AL HYDROX/SIMETH 30 ML UDC PO PRN (17:00)
[2022-04-17] MEDS ORDERED: ACETAMINOPHEN 325 MG TABLET PO PRN (17:00)
[2022-04-17] MEDS ORDERED: MAGNESIUM HYDROXIDE 30 ML UDC PO PRN (17:00)
[2022-04-17] MEDS ORDERED: IV NS 0.9% 1,000 ML IV PRN (17:00)
[2022-04-17] MEDS ORDERED: HYDROCODONE/APAP 5/325MG TABLET PO PRN (17:00)
[2022-04-17] MEDS ORDERED: Z GUARD REMEDY 4 OZ OINT TP PRN (17:00)
[2022-04-17] MEDS ORDERED: ONDANSETRON HCL/PF 4 MG/2 ML VIAL IVP PRN (17:00)
[2022-04-17] MEDS ORDERED: ZOLPIDEM TARTRATE 5 MG TABLET PO PRN (17:00)
[2022-04-17 17:21] LABS: BASOPHILS % (AUTO) 0.7 % (0.0-2.0); EOSINOPHILS % (AUTO) 1.5 % (0.0-6.0); HEMATOCRIT 25 % (33-45); HEMOGLOBIN 8.6 g/dL (11.5-14.8); LYMPHOCYTES # (AUTO) 1.7 K/uL (0.8-4.8); LYMPHOCYTES % (AUTO) 27.3 % (20.0-44.0); MEAN CORPUSCULAR HGB CONC 35 g/dl (31.0-36.0); MEAN CORPUSCULAR VOLUME 107 fL (82-100); MONOCYTES # (AUTO) 0.9 K/uL (0.1-1.30); MONOCYTES % (AUTO) 14.5 % (2.0-12.0); NEUTROPHILS # (AUTO) 3.4 K/uL (1.8-8.9); PLATELET COUNT (AUTO) 160 K/uL (150-450); RED BLOOD CELL COUNT(AUTO) 2.32 MIL/uL (4.0-5.2); WHITE BLOOD COUNT (AUTO) 6.1 K/uL (4.3-11.0)
[2022-04-17 17:24] LABS: CALCIUM, SERUM 8.9 mg/dL (8.5-10.1); CREATININE 0.9 mg/dL (0.6-1.3); POTASSIUM 3.4 mmol/L (3.5-5.1)
--- NOTE | 2022-04-17 18:06 | NUR ---
PT LEFT AGAINST MEDICAL ADVICE. PT WAS EXPLAINED THE RISKS OF LEAVING, INCLUSING , PT STATED THAT SHE WAS UPSET THAT SHE HAD TO WAIT AGAIN FOR A BED. PT SIGNED AGAINST MEDICAL ADVICE PAPERS. IV WAS REMOVED AND PRESSURE APPLIED TO SITE. PT LEFT THE ER WALKING.
[2022-04-17 18:52] VITALS: BP 93/64
[2022-04-17] MEDS ORDERED: LORAZEPAM INJ 2 MG/ML VIAL IV PRN (19:30)
[2022-04-17 21:57] LABS: BILIRUBIN,TOTAL 0.4 mg/dL (0.2-1.0)
[2022-04-17 21:58] LABS: ALBUMIN 3.4 g/dL (3.4-5.0); TOTAL PROTEIN, SERUM 7.7 g/dL (6.4-8.2)
[2022-04-17 22:22] LABS: MAGNESIUM 1.4 mg/dL (1.8-2.4)
[2022-04-18] MEDS ORDERED: PANTOPRAZOLE 40 MG VIAL IV SCH (09:00)
== END 2022-04-17 18:55 | disposition left against medical advice (07) ==
LOC: ER 15:38
DX: K92.2 Gastrointestinal hemorrhage, unspecified (principal); Z53.29 Procedure and treatment not carried out because of patient's decision for other reasons; D64.9 Anemia, unspecified; Z88.0 Allergy status to penicillin; F10.139 Alcohol abuse with withdrawal, unspecified; G40.909 Epilepsy, unspecified, not intractable, without status epilepticus; Z79.899 Other long term (current) drug therapy; E87.6 Hypokalemia; E87.1 Hypo-osmolality and hyponatremia; Z87.440 Personal history of urinary (tract) infections; Z20.822 Contact with and (suspected) exposure to COVID-19
CPT/HCPCS: 36415; 80053; 83735; 85025; 85730; 87426; 93005; 99284; C9803

== ENCOUNTER 2022-04-18 00:33 | Emergency (ER) | payer OTHER ==
[~2022-04-18] VITALS: Ht 167.6 cm; Wt 61.2 kg
--- NOTE | 2022-04-18 02:50 | NUR ---
BIBS. POOR PO INTAKE "FEEL DEHYDRATED". LEFT AMA YESTERDAY FOR GI BLEED TX LAST DRINK 1300. PATIENT ALERT AND ORIENTED X3. AMBULATORY WITH NON LABORED BREATHING. PT IN BED 11 ON MONITOR AND POX AWAITING MD JOSE.
[2022-04-18] MEDS ORDERED: PANTOPRAZOLE 40 MG VIAL IV ONE (03:30)
[2022-04-18] MEDS ORDERED: IV NS 0.9% 1,000 ML BAG IV ONE (03:30)
[2022-04-18] MEDS ORDERED: PANTOPRAZOLE 40 MG VIAL ONE (03:47)
[2022-04-18] MEDS ORDERED: OCTREOTIDE 100 MCG/ML VIAL ONE (03:48)
[2022-04-18] MEDS ORDERED: LORAZEPAM INJ 2 MG/ML VIAL ONE (03:49)
[2022-04-18 03:58] LABS: BASOPHILS # (AUTO) 0.1 K/uL (0.0-0.2); EOSINOPHILS % (AUTO) 1.8 % (0.0-6.0); HEMATOCRIT 25 % (33-45); HEMOGLOBIN 8.5 g/dL (11.5-14.8); LYMPHOCYTES # (AUTO) 2.5 K/uL (0.8-4.8); LYMPHOCYTES % (AUTO) 36.5 % (20.0-44.0); MEAN CORPUSCULAR HGB CONC 34 g/dl (31.0-36.0); MEAN CORPUSCULAR VOLUME 109 fL (82-100); MONOCYTES # (AUTO) 0.9 K/uL (0.1-1.30); MONOCYTES % (AUTO) 13.7 % (2.0-12.0); NEUTROPHILS # (AUTO) 3.2 K/uL (1.8-8.9); PLATELET COUNT (AUTO) 196 K/uL (150-450); RED BLOOD CELL COUNT(AUTO) 2.32 MIL/uL (4.0-5.2); WHITE BLOOD COUNT (AUTO) 6.9 K/uL (4.3-11.0)
[2022-04-18] MEDS ORDERED: OCTREOTIDE 50 MCG/ML AMPUL IV ONE (04:00)
[2022-04-18] MEDS ORDERED: LORAZEPAM INJ 2 MG/ML VIAL IV ONE (04:00)
[2022-04-18] MEDS ORDERED: PANTOPRAZOLE 80 MG in IV NS 0.9% 100 ML IV ONE (04:00)
--- NOTE | 2022-04-18 04:00 | NUR ---
IV LINE ESTABLISHED , RFA 22G
--- NOTE | 2022-04-18 04:02 | NUR ---
COVID ANTIGEN SWAB COLLECTED AND SENT TO LAB
[2022-04-18 04:10] LABS: CALCIUM, SERUM 9.6 mg/dL (8.5-10.1); POTASSIUM 3.8 mmol/L (3.5-5.1)
[2022-04-18 04:25] LABS: ALBUMIN 3.6 g/dL (3.4-5.0); BILIRUBIN,DIRECT 0.2 mg/dL (0.0-0.2); BILIRUBIN,TOTAL 0.3 mg/dL (0.2-1.0); TOTAL PROTEIN, SERUM 8.3 g/dL (6.4-8.2)
--- NOTE | 2022-04-18 06:00 | NUR ---
Dr Meneses on the phone with Dr. Rajput from [facility]
--- NOTE | 2022-04-18 06:08 | NUR ---
PT IS GOING TO [facility]. ACCEPTING DR. SOLANGE ZAMORA
--- NOTE | 2022-04-18 06:33 | NUR ---
JOSE BLAKE AT [facility] PT GOT ACCEPTED AT [facility] RM [id number] TORRES # FOR REPORT: [phone] AUTH NUMBER FOR TRQANSPORTATION [id number] MARIA M: [phone]
--- NOTE | 2022-04-18 06:42 | NUR ---
[facility] BLS ETA: [address] CASE, PT CAN BE TRANSFERRED VIA BLS TRANSPORTATION
--- NOTE | 2022-04-18 06:59 | NUR ---
PER RN WHEN ARRIVING TO [place], PASS BY ADMITTING FOR WRIST BAND. REPORT GIVEN TO TOMASA JASON
--- NOTE | 2022-04-18 07:00 | NUR ---
RECEVED PT FROM NIGEL RANDOLPH PLAN TO TRANSFER TO [facility] AND REPORT WAS GIVEN PT AWARE AND ALERT NO ACTIVE BLEEDING ANDOMIN SOFT
[2022-04-18 07:40] VITALS: BP 103/75
--- NOTE | 2022-04-18 08:10 | NUR ---
TRANSFER TO [facility] STABLE VS NO GI ACTIVE BLEEDING
== END 2022-04-18 08:27 | disposition short-term general hospital (02) ==
LOC: ER 00:35
DX: K92.2 Gastrointestinal hemorrhage, unspecified (principal); E87.2 Acidosis; F10.139 Alcohol abuse with withdrawal, unspecified; R11.2 Nausea with vomiting, unspecified; Z20.822 Contact with and (suspected) exposure to COVID-19; S00.10XD Contusion of unspecified eyelid and periocular area, subsequent encounter; W19.XXXD Unspecified fall, subsequent encounter; E86.0 Dehydration; R74.8 Abnormal levels of other serum enzymes
CPT/HCPCS: 36415; 71045; 80048; 80076; 83690; 85025; 85730; 86850; 87426; 96365; 96366; 96375; 99284; C9113 ×2; C9803; J2060; J2354 ×2; J7030 ×3